=== PATIENT | female | born 1935 | race Caucasian/White ===

== ENCOUNTER 2022-07-09 11:54 | Outpatient (CLI) | payer MEDICARE, OTHER ==
[~2022-07-09] VITALS: Ht 157.5 cm; Wt 87.1 kg
[~2022-07-09 11:54] MED LIST: ASPI-1071 PO; FURO40TA4 PO; LANTUS SQ; LEVO137T24 PO; LOSA100T57 PO; Potassium Citrate PO; SITA1TBM7 PO; Vitamin B12 PO; Vitamin D3 PO
[2022-07-09 12:58] LABS: APTT 26 SECONDS (22-32)
[2022-07-09 13:07] LABS: ALANINE AMINOTRANSFERASE 11 U/L (12-78); ALBUMIN 3.3 G/DL (3.4-5.0); ALBUMIN/GLOBULIN RATIO 0.8 (1.1-1.5); ALKALINE PHOSPHATASE 79 IU/L (46-116); ANION GAP 7 (8-16); ASPARTATE AMINO TRANSFERASE 14 U/L (10-37); BILIRUBIN,TOTAL 0.8 MG/DL (0.1-1.0); BLOOD UREA NITROGEN 35 MG/DL (7-18); BUN/CREATININE RATIO 25.9 (6.6-38.0); CALCIUM 9.4 MG/DL (8.5-10.1); CHLORIDE 104 MMOL/L (99-107); CREATININE 1.35 MG/DL (0.40-0.90); GLUCOSE 123 MG/DL (70-104); POTASSIUM 4.6 MMOL/L (3.5-5.1); SODIUM 137 MMOL/L (135-145); TOTAL CARBON DIOXIDE 25.8 MMOL/L (24-32); TOTAL PROTEIN 7.6 G/DL (6.4-8.2); eGFR 37 ML/MIN
[2022-07-09 13:23] LABS: BASOPHILS # (AUTO) 0.1 X10'3 (0-0.2); BASOPHILS % (AUTO) 0.5 % (0-1); EOSINOPHILS # (AUTO) 0.1 X10'3 (0-0.9); EOSINOPHILS % (AUTO) 0.9 % (0-6); HEMOGLOBIN 7.5 g/dl (12.0-16.0); LYMPHOCYTES # (AUTO) 1.5 X10'3 (1.1-4.8); LYMPHOCYTES % (AUTO) 13.8 % (21-51); MEAN PLATELET VOLUME 8.6 FL (7.4-10.4); MONOCYTES % (AUTO) 9.6 % (2-12); NEUTROPHILS % (AUTO) 75.2 % (42-75); PLATELET COUNT 344 X10'3 (140-440); WHITE BLOOD COUNT 10.6 X10'3 (4.5-11.0)
[2022-07-09] MEDS ORDERED: IODIXANOL 320 MG/ML INFUS..BTL 100ML IV ONE ×2 (13:24→13:50)
[2022-07-09 14:02] LABS: HEMATOCRIT 24.3 % (35.0-45.0); MEAN CORPUSCULAR HEMOGLOBIN 17.8 PG (27.0-31.0); MEAN CORPUSCULAR VOLUME 57.5 FL (78-98); RED BLOOD COUNT 4.22 X10'6 (4.20-5.60); RED CELL DISTRIBUTION WIDTH 19.4 % (11.5-14.5)
[2022-07-09 14:44] LABS: PLATELET ESTIMATE NORMAL
[2022-07-09 14:45] LABS: ACANTHOCYTES FEW; ANISOCYTOSIS 3+; BURR CELLS FEW; ELLIPTOCYTES 1+; HYPOCHROMASIA 1+; MICROCYTOSIS 3+; POLYCHROMASIA 2+; SCHISTOCYTES FEW; TEAR DROP CELLS 1+
[2022-07-09] MEDS ORDERED: albuterol 2.5 MG/3 ML nebule NEB PRN (15:15)
[2022-07-13] MEDS ORDERED: LEVO100T PO (18:00)
[2022-07-13] MEDS ORDERED: CHOL100017 PO (18:02)
[2022-07-13] MEDS ORDERED: RAMI5CAP65 PO (18:02)
[2022-07-13] MEDS ORDERED: POTA-280 PO (18:02)
== END 2022-07-09 23:59 | disposition home or self-care (01) ==
LOC: RAD 11:54
PROVIDERS: ATTEND Internal Medicine Cardiovascular Disease
DX: Z01.818 Encounter for other preprocedural examination (principal); J90 Pleural effusion, not elsewhere classified; I51.7 Cardiomegaly; J98.11 Atelectasis; K80.20 Calculus of gallbladder without cholecystitis without obstruction; I70.0 Atherosclerosis of aorta; M40.294 Other kyphosis, thoracic region; M47.814 Spondylosis without myelopathy or radiculopathy, thoracic region; I65.29 Occlusion and stenosis of unspecified carotid artery; Z95.4 Presence of other heart-valve replacement; Z79.899 Other long term (current) drug therapy
CPT/HCPCS: 36415; 71046; 71275; 74174; 80053; 85008; 85025; 85610; 85730; 94010; 94727; 94729; J3490; Q9967